=== PATIENT | male | born 1950 | race Caucasian/White ===

== ENCOUNTER 2019-12-19 18:05 | Emergency (ER) | payer OTHER, BC ==
[2019-12-19 18:55] LABS: Absolute Lymphocytes (CBC) 2.2 K/uL (0.7-4.9); Basophils % 0.4 % (0-1.3); Hematocrit 39.1 % (39.6-49.0); MPV 9.2 fL (7.6-11.3); RBC Red Blood Cell Count 4.26 M/uL (4.33-5.43)
[2019-12-19 19:11] LABS: Albumin 3.7 g/dL (3.4-5.0); Bilirubin Direct 0.1 mg/dL (0-0.2); Bilirubin Total 0.3 mg/dL (0.2-1.0); Potassium 3.9 mmol/L (3.5-5.1); Protein, Total 7.2 g/dL (6.4-8.2)
--- NOTE | 2019-12-19 19:54 | RAD REPORT ---
EXAM DESCRIPTION: CTAbdomen Pelvis W Contrast - 12/19/2019 7:43 pm CLINICAL HISTORY: Abdominal pain. ABD PAIN COMPARISON: No comparisons TECHNIQUE: Biphasic CT imaging of the abdomen and pelvis was performed with 100 ml non-ionic IV cont rast. All CT scans are performed using dose optimization technique as appropriate and may include automated exposure control or mA/KV adjustment according to patient size. FINDINGS: The lung bases are clear. The liver, spleen, pancreas, adrenal glands and left kidney are within normal limits. 2 mm stone is p resent right UVJ resulting in mild right hydronephrosis and hydroureter. No bowel obstruction, free air, free fluid or abscess. The appendix is normal. No evidence of signi ficant lymphadenopathy. Prostate gland mildly projects into the bladder base. No suspicious bony findings. IMPRESSION: 2 mm calculus right UVJ resulting in mild right hydronephrosis.
--- NOTE | 2019-12-19 20:21 | EDPHYS ---
Physician Documentation [facility] Name: Grant Berg Age: 69 yrs Sex: Male : 1950 Arrival Date: 12/19/2019 Time: 18:06 Bed 2 Private MD: Sudeep Rogel ED Physician Cholo Estrada HPI: 12/18 20:17 This 69 yrs old Male presents to ER via Ambulatory with complaints of jr8 Abdominal Pain. 20:17 The patient presents with abdominal pain in the lower abdomen. Onset: The jr8 symptoms/episode began/occurred acutely, today. The symptoms do not radiate. Associated signs and symptoms: Pertinent positives: nausea. The symptoms are described as stabbing. Modifying factors: The symptoms are alleviated by nothing, the symptoms are aggravated by nothing. Severity of pain: At its worst the pain was moderate in the emergency department the pain has improved mildly. The patient has not experienced similar symptoms in the past. The patient has not recently seen a physician. Historical: - Allergies: 18:12 No Known Allergies; ll1 - PMHx: 18:12 Diabetes - NIDDM; ll1 - PSHx: 18:12 L axilary lymph node removed; cataracts; ll1 - Immunization history:: Flu vaccine is up to date. - Social history:: Smoking status: Patient denies any tobacco usage or history of. Patient/guardian denies using alcohol, street drugs, tobacco products. ROS: 20:17 Eyes: Negative for injury, pain, redness, and discharge, ENT: Negative for injury, jr8 pain, and discharge, Neck: Negative for injury, pain, and swelling, Cardiovascular: Negative for chest pain, palpitations, and edema, Respiratory: Negative for shortness of breath, cough, wheezing, and pleuritic chest pain, Back: Negative for injury and pain, MS/Extremity: Negative for injury and deformity, Skin: Negative for injury, rash, and discoloration, Neuro: Negative for headache, weakness, numbness, tingling, and seizure. 20:17 Abdomen/GI: Positive for abdominal pain, nausea, Negative for vomiting, diarrhea, constipation, abdominal cramps, abdominal distension. Exam: 20:17 Eyes: Pupils equal round and reactive to light, extra-ocular motions intact. Lids and jr8 lashes normal. Conjunctiva and sclera are non-icteric and not injected. Cornea within normal limits. Periorbital areas with no swelling, redness, or edema. ENT: Nares patent. No nasal discharge, no septal abnormalities noted. Tympanic membranes are normal and external auditory canals are clear. Oropharynx with no redness, swelling, or masses, exudates, or evidence of obstruction, uvula midline. Mucous membranes moist. Neck: Trachea midline, no thyromegaly or masses palpated, and no cervical lymphadenopathy. Supple, full range of motion without nuchal rigidity, or vertebral point tenderness. No Meningismus. Cardiovascular: Regular rate and rhythm with a normal S1 and S2. No gallops, murmurs, or rubs. Normal PMI, no JVD. No pulse deficits. Respiratory: Lungs have equal breath sounds bilaterally, clear to auscultation and percussion. No rales, rhonchi or wheezes noted. No increased work of breathing, no retractions or nasal flaring. Back: No spinal tenderness. No costovertebral tenderness. Full range of motion. Skin: Warm, dry with normal turgor. Normal color with no rashes, no lesions, and no evidence of cellulitis. MS/ Extremity: Pulses equal, no cyanosis. Neurovascular intact. Full, normal range of motion. Neuro: Awake and alert, GCS 15, oriented to person, place, time, and situation. Cranial nerves II-XII grossly intact. Motor strength 5/5 in all extremities. Sensory grossly intact. Cerebellar exam normal. Normal gait. 20:17 Abdomen/GI: Inspection: abdomen appears normal, Bowel sounds: active, all quadrants, Palpation: soft, in all quadrants, mild abdominal tenderness, in the right lower quadrant, mass, is not appreciated, rebound tenderness, is not appreciated, voluntary guarding, is not appreciated, involuntary guarding, is not appreciated, no appreciated organomegaly, Indicators: McBurney's point is not tender, Marques's sign is negative, Rovsing's sign is negative, Liver: tenderness, is not appreciated. Vital Signs: 18:13 BP 187 / 92; Pulse 70; Resp 18; Temp 98.3; Pulse Ox 100% ; Pain 7/10; ll1 21:00 BP 174 / 106; Pulse 78; Resp 16; Pulse Ox 100% on R/A; jb4 MDM: 18:31 Patient medically screened. jr8 20:17 Data reviewed: vital signs, nurses notes, lab test result(s), radiologic studies, CT jr8 scan. Data interpreted: Pulse oximetry: on room air is 100 %. Interpretation: normal. Counseling: I had a detailed discussion with the patient and/or guardian regarding: the historical points, exam findings, and any diagnostic results supporting the discharge/admit diagnosis, lab results, radiology results, the need for outpatient follow up, a urologist, to return to the emergency department if symptoms worsen or persist or if there are any questions or concerns that arise at home. ED course: Patient stable. Pain in control. Able to urinate. Will d/c home to f/u with urology. Knows to come back if worse . 12/18 18:31 Order name: Basic Metabolic Panel; Complete Time: 19:18 8 12/18 18:31 Order name: CBC with Diff; Complete Time: 19:56 8 12/18 18:31 Order name: Hepatic Function; Complete Time: 19:18 8 12/18 18:31 Order name: Lipase; Complete Time: 19:18 8 12/18 19:18 Order name: CT Abd/Pelvis - IV Contrast Only; Complete Time: 19:56 8 12/18 18:31 Order name: IV Saline Lock; Complete Time: 19:12 8 12/18 18:31 Order name: Labs collected and sent; Complete Time: 19:12 8 12/18 19:56 Order name: Urine Dipstick-Ancillary (obtain specimen); Complete Time: 21:08 jr8 Administered Medications: 20:32 Drug: TORadol - Ketorolac 15 mg Route: IVP; Site: right antecubital; jb4 21:00 Follow up: Response: No adverse reaction; Pain is decreased jb4 Disposition: 12/19 06:07 Co-signature as Attending Physician, Cholo Estrada MD I agree with the assessment and kdr plan of care. Disposition: 12/19/19 20:20 Discharged to Home. Impression: Hydronephrosis with renal and ureteral calculous obstruction. - Condition is Stable. - Discharge Instructions: Kidney Stones, Hydronephrosis. - Prescriptions for Tylenol- Codeine #3 300-30 mg Oral Tablet - take 2 tablets by ORAL route every 6 hours As needed; 20 tablet. Zofran 4 mg Oral Tablet - take 1 tablet by ORAL route every 12 hours As needed; 20 tablet. Flomax 0.4 mg Oral Capsule, Sust. Release 24 hr - take 1 capsule by ORAL route once daily 1/2 hour following the same meal each day; 30 capsule. - Medication Reconciliation Form, Thank You Letter, Antibiotic Education, Prescription Opioid Use form. - Follow up: Daniel Mauricio MD; When: 5 - 6 days; Reason: Recheck today's complaints, Continuance of care, Re-evaluation by your physician. - Problem is new. - Symptoms have improved. Signatures: Dispatcher [employer] EDMS Cholo Estrada MD MD kdr Richie Moffett PA PA jr8 Ramez Hernandez RN RN jb4 Denny Steinberg RN RN ll1 Corrections: (The following items were deleted from the chart) 12/18 21:09 20:20 12/19/2019 20:20 Discharged to Home. Impression: Hydronephrosis with renal and jb4 ureteral calculous obstruction. Condition is Stable. Forms are Medication Reconciliation Form, Thank You Letter, Antibiotic Education, Prescription Opioid Use. Follow up: Daniel Mauricio; When: 5 - 6 days; Reason: Recheck today's complaints, Continuance of care, Re-evaluation by your physician. Problem is new. Symptoms have improved. jr8
--- NOTE | 2019-12-19 20:21 | ER ---
Nurse's Notes [facility] Name: Grant Berg Age: 69 yrs Sex: Male : 1950 Arrival Date: 12/19/2019 Time: 18:06 Bed 2 Private MD: Sudeep Rogel Diagnosis: Hydronephrosis with renal and ureteral calculous obstruction Presentation: 12/18 18:13 Coronavirus screen: Proceed with normal triage. Patient denies a cough. Patient denies ll1 shortness of breath or difficulty breathing. Patient denies measured and/or subjective temperature greater than 100.4F prior to today's visit. Patient denies travel on a cruise ship or to a country the [facility] currently lists as an affected area. Patient denies contact with known and/or suspected case of COVID-19. Ebola Screen: Patient denies travel to an Ebola-affected area in the 21 days before illness onset. Initial Sepsis Screen: Does the patient meet any 2 criteria? No. Patient's initial sepsis screen is negative. Does the patient have a suspected source of infection? Yes: Acute abdominal pain. Risk Assessment: Do you want to hurt yourself or someone else? Patient reports no desire to harm self or others. Onset of symptoms was December 19, 2019. 18:13 Method Of Arrival: Ambulatory ll1 18:13 Acuity: JOHANNY 3 ll1 18:15 Chief complaint: Patient states: RLQ abd pain started today at 1500. Noticed dysuria ll1 when urinating today. No fever. Historical: - Allergies: 18:12 No Known Allergies; ll1 - PMHx: 18:12 Diabetes - NIDDM; ll1 - PSHx: 18:12 L axilary lymph node removed; cataracts; ll1 - Immunization history:: Flu vaccine is up to date. - Social history:: Smoking status: Patient denies any tobacco usage or history of. Patient/guardian denies using alcohol, street drugs, tobacco products. Screenin:15 Abuse screen: Denies threats or abuse. Nutritional screening: No deficits noted. jb4 Tuberculosis screening: No symptoms or risk factors identified. Fall Risk None identified. Assessment: 19:15 General: Appears in no apparent distress. comfortable, Behavior is calm, cooperative, jb4 appropriate for age. Pain: Complains of pain in right lower quadrant Pain radiates to right low back Pain currently is 4 out of 10 on a pain scale. Quality of pain is described as aching, Pain began 1 day ago. Is continuous. Neuro: Level of Consciousness is awake, alert, obeys commands, Oriented to person, place, time, situation. Cardiovascular: Patient's skin is warm and dry. Respiratory: Airway is patent Respiratory effort is even, unlabored, Respiratory pattern is regular, symmetrical. GI: Bowel sounds present X 4 quads. Abd is soft X 4 quads Abd is non tender in epigastric area, umbilical area, suprapubic area, right upper quadrant, left upper quadrant and left lower quadrant Abdomen is tender to palpation in right lower quadrant Reports lower abdominal pain. : Reports burning with urination. EENT: No signs and/or symptoms were reported regarding the EENT system. Derm: Skin is intact, Skin is pink, warm \T\ dry. Musculoskeletal: Circulation, motion, and sensation intact. Range of motion: intact in all extremities. 20:15 Reassessment: Patient appears in no apparent distress at this time. Patient and/or jb4 family updated on plan of care and expected duration. Pain level reassessed. Patient is alert, oriented x 3, equal unlabored respirations, skin warm/dry/pink. 21:00 Reassessment: Patient appears in no apparent distress at this time. Patient and/or jb4 family updated on plan of care and expected duration. Pain level reassessed. Patient is alert, oriented x 3, equal unlabored respirations, skin warm/dry/pink. Vital Signs: 18:13 BP 187 / 92; Pulse 70; Resp 18; Temp 98.3; Pulse Ox 100% ; Pain 7/10; ll1 21:00 BP 174 / 106; Pulse 78; Resp 16; Pulse Ox 100% on R/A; jb4 ED Course: 18:06 Patient arrived in ED. ag5 18:06 Sudeep Rogel MD is Private Physician. ag5 18:13 Triage completed. ll1 18:13 Arm band placed on. ll1 18:31 [facility] jr8 18:31 Cholo Estrada MD is Attending Physician. jr8 19:12 Ramez Hernandez, [facility] is Primary Nurse. jb4 19:15 Patient has correct armband on for positive identification. Bed in low position. Call jb4 light in reach. Side rails up X 1. Pulse ox on. NIBP on. 19:43 CT Abd/Pelvis - IV Contrast Only In Process Unspecified. EDMS 20:19 Daniel Mauricio MD is Referral Physician. jr8 21:00 No provider procedures requiring assistance completed. IV discontinued, intact, jb4 bleeding controlled, No redness/swelling at site. Pressure dressing applied. Administered Medications: 20:32 Drug: TORadol - Ketorolac 15 mg Route: IVP; Site: right antecubital; jb4 21:00 Follow up: Response: No adverse reaction; Pain is decreased jb4 Outcome: 20:20 Discharge ordered by . jr8 21:00 Discharged to home ambulatory. jb4 21:00 Condition: stable 21:00 Discharge instructions given to patient, Instructed on discharge instructions, follow up and referral plans. medication usage, Demonstrated understanding of instructions, follow-up care, medications, Prescriptions given X 3. 21:09 Patient left the ED. jb4 Signatures: Dispatcher [employer] EDMS Richie Moffett PA PA jr8 Ramez Hernandez, RN RN jb4 Oralia Maya 5 Denny Steinberg, RN RN ll1
[2019-12-19] MEDS ORDERED: KETOROLAC 30 MG/ML INJ ONE (20:38)
[2019-12-19 21:16] VITALS: BP 187/92; TEMP 98.3; O2SAT 100
== END 2019-12-19 21:09 | disposition home or self-care (01) ==
LOC: ER 18:05
DX: N13.2 Hydronephrosis with renal and ureteral calculous obstruction (principal); E11.9 Type 2 diabetes mellitus without complications
CPT/HCPCS: 85025; 80048; 36415; 80076; 83690; 74177; 96374; 99284; Q9967